=== PATIENT | female | born 1950 | race Caucasian/White ===

== ENCOUNTER → 2018-09-10 | Outpatient (CLI) | payer MEDICARE, BC ==
--- NOTE | 2018-09-10 14:00 | REP ---
Chest two views HISTORY: Cough Comparison: CT 05/10/2011 Linear densities are present in the upper lobes consistent with scarring. Bilateral apical pleural thickening is present. The heart is normal in size. The pulmonary vasculature is normal in appearance. The bony structure is intact. IMPRESSION: Bilateral upper lobe scarring. Electronically Signed by Beau Perrin MD 09/10/2018 01:52 P
== END ==
LOC: M SMT 13:36
PROVIDERS: ATTEND Internal Medicine Pulmonary Disease
DX: R05 Cough (principal)

== ENCOUNTER → 2018-12-06 | Outpatient (REF) | payer MEDICARE, BC ==
[2018-12-06 19:03] LABS: BASO % 0.4 % (0.0-1.0); EOS # 0.1 10^3/uL (0.0-0.50); EOS % 0.7 % (0.0-3.0); HEMATOCRIT 47.3 % (36.0-47.0); HEMOGLOBIN 15.4 g/dl (12.0-15.5); LYMPH # 1.2 10^3/uL (1.5-4.5); LYMPH % 16.8 % (24.0-44.0); MEAN CORPUSCULAR HEMOGLOBIN 31.6 pg (27.0-33.0); MEAN CORPUSCULAR HGB CONC 32.6 g/dl (32.0-36.5); MEAN CORPUSCULAR VOLUME 97.1 fl (80.0-96.0); MONO # 0.7 10^3/uL (0.0-0.8); MONO % 10.4 % (0.0-5.0); NEUTROPHILS % 71.4 % (36.0-66.0); PLATELET COUNT, AUTOMATED 192 10^3/uL (150-450); RED BLOOD COUNT 4.87 10^6/uL (4.00-5.40)
== END ==
LOC: M LAB REF 17:42
PROVIDERS: ATTEND Internal Medicine Pulmonary Disease
DX: R05 Cough (principal); J45.41 Moderate persistent asthma with (acute) exacerbation

== ENCOUNTER → 2019-02-06 | Outpatient (CLI) | payer MEDICARE, BC ==
--- NOTE | 2019-02-06 14:19 | REP ---
Chest two views HISTORY: Cough Comparison: 09/10/2018 Linear densities are present in the upper lobes consistent with scarring. The heart is normal in size. The pulmonary vasculature is normal in appearance. The bony structure is intact. IMPRESSION: No acute disease. Electronically Signed by Beau Perrin MD 02/06/2019 02:11 P
== END ==
LOC: M SMT 13:48
PROVIDERS: ATTEND Internal Medicine Pulmonary Disease
DX: J45.909 Unspecified asthma, uncomplicated (principal)

== ENCOUNTER → 2019-02-20 | Outpatient (CLI) | payer MEDICARE, BC ==
[~2019-02-20] MED LIST: ADVA230A INH; ALL10TAB28 PO; AZEL1SPR3 NARES; CITRTAB18 PO; COQ-100C5 PO; D 101000 PO; FLON1SPR NARES; ISOVUE-370 76% 100ML VIAL (Q9967) As Ordered ONE; MULTCAP PO; RANI1TAB38 PO; REST0.05 OP; ROBA500T PO; SING10TA32 PO; TIOT18INH INH
--- NOTE | 2019-02-20 13:28 | REP ---
CT CHEST WITH IV CONTRAST: HISTORY: Cough. Comparison chest x-rays are from February 06, 2019 and September 10, 2018. There is a comparison chest CT from [facility] dated May 10, 2011. The prior study was interpreted as showing changes of mild cylindrical bronchiectasis in the lower lobes bilaterally. CT CONTRAST DOSE: 75 mL of intravenous Isovue [address] FINDINGS: This is unchanged. There is a 5 mm noncalcified nodule in the left upper lobe on today's study, page 13 of 110 in series 201. This is unchanged from the 2011 prior exam. There is no evidence of pleural or pericardial effusion. No hilar or mediastinal mass or adenopathy is observed. No other pulmonary nodule or mass lesion is seen. The right lower lobe bronchi are somewhat larger than their accompanying pulmonary arteries, and there are several areas of inspissated mucoid material within the right lower lobe bronchi, consistent with diagnosis of bronchiectasis. This is less prominent in the left lower lobe. No infiltrate is seen. There is some right upper lobe cylindrical of bronchiectasis as well. No bony destructive lesion. The exam is otherwise unremarkable. No adrenal abnormality is observed. IMPRESSION: Changes consistent with bronchiectasis in the lower lobes bilaterally, right more so than left as well as in the right upper lobe. Stable biapical pleuroparenchymal fibrosis. Stable 5 mm left apical nodule. Electronically Signed by Sonido Moy MD 02/20/2019 02:21 P
== END ==
LOC: M RAD 10:39
PROVIDERS: ATTEND Internal Medicine Pulmonary Disease
DX: J84.112 Idiopathic pulmonary fibrosis (principal); R91.1 Solitary pulmonary nodule
CPT/HCPCS: 71260; Q9967

== ENCOUNTER 2019-02-21 20:06 | Emergency (ER) | payer MEDICARE, BC ==
[~2019-02-21] VITALS: Ht 162.6 cm; Wt 62.3 kg
[2019-02-21] MEDS ORDERED: SING10TA32 PO (20:27)
[2019-02-21] MEDS ORDERED: RANI1TAB38 PO (20:27)
[2019-02-21] MEDS ORDERED: ALL10TAB28 PO (20:32)
[2019-02-21] MEDS ORDERED: AZEL1SPR3 NARES (20:32)
[2019-02-21] MEDS ORDERED: ADVA230A INH (20:32)
[2019-02-21] MEDS ORDERED: TIOT18INH INH (20:32)
[2019-02-21] MEDS ORDERED: COQ-100C5 PO (20:32)
[2019-02-21] MEDS ORDERED: D 101000 PO (20:32)
[2019-02-21] MEDS ORDERED: FLON1SPR NARES (20:32)
[2019-02-21] MEDS ORDERED: REST0.05 OP (20:32)
[2019-02-21] MEDS ORDERED: MULTCAP PO (20:32)
[2019-02-21] MEDS ORDERED: CITRTAB18 PO (20:32)
[2019-02-21 20:35] LABS: BASO % 0.2 % (0.0-1.0); EOS % 0.1 % (0.0-3.0); HEMATOCRIT 42.1 % (36.0-47.0); HEMOGLOBIN 14.4 g/dl (12.0-15.5); LYMPH # 0.6 10^3/uL (1.5-4.5); LYMPH % 6.9 % (24.0-44.0); MEAN CORPUSCULAR HEMOGLOBIN 33.1 pg (27.0-33.0); MEAN CORPUSCULAR HGB CONC 34.2 g/dl (32.0-36.5); MEAN CORPUSCULAR VOLUME 96.8 fl (80.0-96.0); MONO # 0.2 10^3/uL (0.0-0.8); NEUTROPHILS # 8.1 10^3/uL (1.8-7.7); NEUTROPHILS % 90.4 % (36.0-66.0); PLATELET COUNT, AUTOMATED 149 10^3/uL (150-450); RED BLOOD COUNT 4.35 10^6/uL (4.00-5.40)
[2019-02-21] MEDS ORDERED: NS 1,000 ML IV ONE (20:45)
[2019-02-21] MEDS ORDERED: KETOROLAC 30 MG/ML VIAL (J1885) IV ONE (20:45)
[2019-02-21] MEDS ORDERED: ONDANSETRON 4MG/2ML VIAL (J2405) IV ONE (20:45)
[2019-02-21 21:03] LABS: ALBUMIN 3.6 GM/DL (3.2-5.2); ALT/SGPT 24 U/L (12-78); BILIRUBIN,DIRECT 0.3 MG/DL (0.0-0.2); BILIRUBIN,TOTAL 0.6 MG/DL (0.2-1.0); BLOOD UREA NITROGEN 14 MG/DL (7-18); CALCIUM LEVEL 9.5 MG/DL (8.8-10.2); CARBON DIOXIDE LEVEL 29 MEQ/L (21-32); CHLORIDE LEVEL 104 MEQ/L (98-107); CREATININE FOR GFR 0.93 MG/DL (0.55-1.30); GLOMERULAR FILTRATION RATE > 60.0 (>45); GLUCOSE, FASTING 99 MG/DL (70-100); LIPASE 108 U/L (73-393); POTASSIUM SERUM 3.4 MEQ/L (3.5-5.1); SODIUM LEVEL 140 MEQ/L (136-145); TOTAL PROTEIN 6.7 GM/DL (6.4-8.2)
--- NOTE | 2019-02-21 22:04 | REPVR ---
EXAM: CT Abdomen and Pelvis Without Contrast EXAM DATE/TIME: 02/21/19 (8:53pm) CLINICAL HISTORY: 68 year old female with right flank pain and fever TECHNIQUE: Imaging protocol: Axial computed tomography images of the abdomen and pelvis without contrast. Coronal and sagittal reformatted images were created and reviewed. Radiation optimization: All CT scans at this facility use at least one of these dose optimization techniques: automated exposure control; mA and/or kV adjustment per patient size (includes targeted exams where dose is matched to clinical indication); or iterative reconstruction. COMPARISON: No relevant prior studies available FINDINGS: Lower lung lambert: Patchy RLL airspace disease. Minimal right pleural effusion. The left lung base is essentially clear. Liver: Normal. No solid mass. Gallbladder and bile ducts: Partially contracted gallbladder. No calcified stones. No ductal dilatation. Pancreas: Normal. No ductal dilatation. Spleen: Normal. No splenomegaly. Adrenals: Normal. No mass. Kidneys and ureters: Normal. No hydronephrosis. Stomach and bowel: Normal. No bowel obstruction. No mucosal thickening. Appendix: No evidence of appendicitis. Intraperitoneal space: Normal. No free air. No significant fluid collection. Vasculature: Normal. No abdominal aortic aneurysm. Lymph nodes: Normal. No enlarged lymph nodes. Bladder: Unremarkable as visualized. Reproductive: Unremarkable as visualized. Bones/joints: No acute fracture nor dislocation. Degenerative disc changes at the L2-L3 level. Soft tissues: Unremarkable. IMPRESSION: Patchy RLL airspace disease --- possible infectious pneumonia. Minimal right pleural effusion. Clinical correlation is needed. Follow-up with plain CXR's is recommended. No acute bowel pathology. No hydronephrosis is appreciated. No radiodense urinary tract stones are visualized. Electronically signed by: Emani King On 02/21/2019 22:03:13 PM
[2019-02-21] MEDS ORDERED: LIDOCAINE 5% (LIDODERM) PATCH TD ONE (23:30)
[2019-02-21] MEDS ORDERED: METHOCARBAMOL 1,000 MG/10 ML VIAL (J2800) IV ONE (23:30)
[2019-02-22] MEDS ORDERED: ROBA500T PO (00:20)
[2019-02-22 00:29] VITALS: BP 130/78
[2019-02-22] MEDS ORDERED: **NOTE PATIENT COMMENT** MISC XX SCH (09:00)
--- NOTE | 2019-02-24 13:37 | ED PDOC ---
Post-Departure Follow-Up dr sami lentz faxed formal report of ct abd/p forfu Rod Lopez MD Feb 24, 2019 13:37
== END 2019-02-22 00:30 | disposition home or self-care (01) ==
LOC: M ED 20:06
DX: M54.5 Low back pain (principal); R05 Cough; Z87.891 Personal history of nicotine dependence; Z79.899 Other long term (current) drug therapy; Z79.51 Long term (current) use of inhaled steroids
CPT/HCPCS: 36415; 74176; 80048; 80076; 81001; 83690; 85025; 87086; 96374; 96375; 99284; J1885; J2405; J2800

== ENCOUNTER 2019-08-18 11:37 | Day surgery (SDC) | payer MEDICARE, BC ==
[~2019-08-18] VITALS: Ht 162.6 cm; Wt 59.0 kg
[~2019-08-18 11:37] MED LIST changes: -ALL10TAB28 PO; +ALL10TAB29 PO; -ISOVUE-370 76% 100ML VIAL (Q9967) As Ordered ONE; +LIDOCAINE 2% INJ 100 MG/5 ML SDV (FOR ANES.) As Ordered ONE; +NS 1,000 ML IV ONE; +PROPOFOL 200 MG/20 ML VIAL As Ordered ONE
--- NOTE | 2019-08-18 12:49 | ROOR ---
Patient Name: Ally Lacy Procedure Date: 08/18/2019 12:34 PM Date of : 1950 Age: 69 Room: [facility] Gender: Female Note Status: Finalized Procedure: Upper Endoscopy + Biopsies Indications: Heartburn, Exclusion of Gerard's esophagus Providers: Dann Bangura MD Referring MD: Sushma Hernandez NP Requesting Provider: Medicines: Monitored Anesthesia Care Complications: No immediate complications. Procedure: Pre-Anesthesia Assessment: - The heart rate, respiratory rate, oxygen saturations, blood pressure, adequacy of pulmonary ventilation, and response to care were monitored throughout the procedure. The Endoscope was introduced through the mouth, and advanced to the second part of duodenum. The upper GI endoscopy was accomplished without difficulty. The patient tolerated the procedure well. Findings: The Z-line was irregular and was found 40 cm from the incisors. Multiple biopsies were obtained with cold forceps for evaluation to rule out Gerard's Esophagus randomly at the gastroesophageal junction. A small hiatal hernia was present. No other significant abnormalities were identified in a careful examination of the stomach. The exam of the duodenum was otherwise normal. Impression: - Z-line irregular, 40 cm from the incisors. - Small hiatal hernia. - Multiple biopsies were obtained at the gastroesophageal junction. - The examination was otherwise normal. Recommendation: - Patient has a contact number available for emergencies. The signs and symptoms of potential delayed complications were discussed with the patient. Return to normal activities tomorrow. Written discharge instructions were provided to the patient. - High fiber diet. - Discharge patient to home. - Continue present medications. - Await pathology results. - Telephone GI clinic for pathology results in 1 week. - Return to referring physician. - The findings and recommendations were discussed with the patient's family. Dann Bangura MD Dann Bangura MD 08/18/2019 12:49:17 PM Electronically signed by Dann Bangura MD Number of Addenda: 0 Note Initiated On: 08/18/2019 12:34 PM Estimated Blood Loss: Estimated blood loss: none.
--- NOTE | 2019-08-18 13:17 | ROOR ---
Patient Name: Ally Lacy Procedure Date: 08/18/2019 12:35 PM Date of : 1950 Age: 69 Room: [facility] Gender: Female Note Status: Finalized Procedure: Total Colonoscopy to Cecum + Cold Snare Polypectomy + Biopsy Polypectomy Indications: Screening in patient at increased risk: Family history of 1st-degree relative with colorectal cancer, High risk colon cancer surveillance: Personal history of colonic polyps Providers: Dann Bangura MD Referring MD: Sushma Hernandez NP Requesting Provider: Medicines: Monitored Anesthesia Care Complications: No immediate complications. Procedure: Pre-Anesthesia Assessment: - The heart rate, respiratory rate, oxygen saturations, blood pressure, adequacy of pulmonary ventilation, and response to care were monitored throughout the procedure. The Colonoscope was introduced through the anus and advanced to the cecum, identified by appendiceal orifice and ileocecal valve. The colonoscopy was performed without difficulty. The patient tolerated the procedure well. The quality of the bowel preparation was excellent. Findings: The perianal and digital rectal examinations were normal. Non-bleeding internal hemorrhoids were found during retroflexion. The hemorrhoids were small and Grade I (internal hemorrhoids that do not prolapse). Multiple small and large-mouthed diverticula were found in the recto-sigmoid colon, sigmoid colon and descending colon. A medium polyp was found in the transverse colon. The polyp was sessile. The polyp was removed with a cold snare. Resection and retrieval were complete. A small polyp was found in the hepatic flexure. The polyp was sessile. The polyp was removed with a jumbo cold forceps. Resection and retrieval were complete. A small polyp was found at 40 cm proximal to the anus. The polyp was sessile. The polyp was removed with a jumbo cold forceps. Resection and retrieval were complete. The exam was otherwise without abnormality on direct and retroflexion views. Impression: - Non-bleeding internal hemorrhoids. - Diverticulosis in the recto-sigmoid colon, in the sigmoid colon and in the descending colon. - One medium polyp in the transverse colon, removed with a cold snare. Resected and retrieved. - One small polyp at the hepatic flexure, removed with a jumbo cold forceps. Resected and retrieved. - One small polyp at 40 cm proximal to the anus, removed with a jumbo cold forceps. Resected and retrieved. - The examination was otherwise normal on direct and retroflexion views. - The exam was otherwise normal to the cecum. Recommendation: - Patient has a contact number available for emergencies. The signs and symptoms of potential delayed complications were discussed with the patient. Return to normal activities tomorrow. Written discharge instructions were provided to the patient. - High fiber diet. - Discharge patient to home. - Continue present medications. - Await pathology results. - Repeat colonoscopy in 5 years for surveillance. - Return to referring physician. - The findings and recommendations were discussed with the patient's family. Dann Banguar MD Dann Bangura MD 08/18/2019 1:17:08 PM Electronically signed by Dann Bangura MD Number of Addenda: 0 Note Initiated On: 08/18/2019 12:35 PM Estimated Blood Loss: Estimated blood loss: none.
[2019-08-18 13:40] VITALS: BP 148/67
== END 2019-08-18 14:05 | disposition home or self-care (01) ==
LOC: M OPP 11:37
PROVIDERS: ATTEND Internal Medicine Gastroenterology
DX: Z12.11 Encounter for screening for malignant neoplasm of colon (principal); Z86.010 Personal history of colon polyps; Z80.0 Family history of malignant neoplasm of digestive organs; K64.0 First degree hemorrhoids; K63.5 Polyp of colon; K21.9 Gastro-esophageal reflux disease without esophagitis; K22.8 Other specified diseases of esophagus; K44.9 Diaphragmatic hernia without obstruction or gangrene; R12 Heartburn; Z79.899 Other long term (current) drug therapy; Z87.891 Personal history of nicotine dependence

== ENCOUNTER → 2020-03-16 | Outpatient (CLI) | payer MEDICARE, BC ==
[~2020-03-16] MED LIST changes: -ALL10TAB29 PO; +CETI-24 PO; -LIDOCAINE 2% INJ 100 MG/5 ML SDV (FOR ANES.) As Ordered ONE; -NS 1,000 ML IV ONE; -PROPOFOL 200 MG/20 ML VIAL As Ordered ONE
[2020-03-16 12:54] LABS: IMMUNOGLOBULIN E 31.9 IU/ML (<100); IMMUNOGLOBULIN G 996 MG/DL (681-1648); IMMUNOGLOBULIN M 31.1 MG/DL (40-230); RHEUMATOID FACTOR QUANT < 10.0 IU/ML (<15.0)
[2020-03-20 00:07] LABS: ANCA-ATYPICAL <1:20 titer (Neg:<1:20); ASPERGILLUS FLAVUS ABY Negative (Neg:<1:1); ASPERGILLUS FUMIGATUS ABY Negative (Neg:<1:1); ASPERGILLUS NIGER ABY Negative (Neg:<1:1); CYCLIC CITRULLINATED PEPTIDE < 1 units (0-19); CYTOPLASMIC NEUTROP AB ANCA-C <1:20 titer (Neg:<1:20); D001-IgE D pteronyssinus 0.24 kU/L (Class 0/I); E001-IgE Cat Epith/Dander < 0.10 kU/L (Class 0); E005-IgE Dog Dander < 0.10 kU/L (Class 0); G002-IgE Bermuda Grass < 0.10 kU/L (Class 0); G008-IgE Kentucky Bluegrass < 0.10 kU/L (Class 0); M001-IgE Penicillium chrysogen < 0.10 kU/L (Class 0); M002 IgE Cladosporium herbaru < 0.10 kU/L (Class 0); M003 IgE Aspergillus fumigatu 0.26 kU/L (Class 0/I); M006-IgE Alternaria alternata < 0.10 kU/L (Class 0); PERINUCLEAR AB ANCA-P <1:20 titer (Neg:<1:20); SSA SJOGRENS A <0.2 AI (0.0-0.9); SSB SJOGRENS B <0.2 AI (0.0-0.9); T001-IgE Maple/Box Elder < 0.10 kU/L (Class 0); T003-IgE Common Silver Birch < 0.10 kU/L (Class 0); T006-IgE Cedar, Mountain < 0.10 kU/L (Class 0); T007-IgE Oak, White < 0.10 kU/L (Class 0); T008-IgE Elm, American < 0.10 kU/L (Class 0); T015-IgE Ash, White < 0.10 kU/L (Class 0); T041-IgE Hickory, White < 0.10 kU/L (Class 0); T070-IgE White Mulberry < 0.10 kU/L (Class 0); W001-IgE Ragweed, Short < 0.10 kU/L (Class 0); W009-IgE Plantain, English < 0.10 kU/L (Class 0); W014-IgE Pigweed, Rough < 0.10 kU/L (Class 0); W018-IgE Sheep Sorrel < 0.10 kU/L (Class 0)
== END ==
LOC: M PLALAB 09:54
PROVIDERS: ATTEND Internal Medicine Pulmonary Disease
DX: J45.40 Moderate persistent asthma, uncomplicated (principal)

== ENCOUNTER → 2021-07-04 | Outpatient (CLI) | payer MEDICARE, BC | LOC: M LABSMTC 10:39 | PROVIDERS: ATTEND Pediatrics | DX: Z20.822 Contact with and (suspected) exposure to COVID-19 (principal) | CPT/HCPCS: C9803; U0003 ==

== ENCOUNTER → 2021-07-07 | Outpatient (CLI) | payer MEDICARE, BC ==
--- NOTE | 2021-07-07 15:35 | REP ---
INDICATION: COUGH, DYSPNEA. COMPARISON: 02/06/2019 TECHNIQUE: PA and lateral FINDINGS: The cardiomediastinal silhouette is unchanged. The heart is not enlarged. There is a new patchy opacity in the right lower lobe. A new left lower lobe patchy opacity also appears to be developing. There is slight right CP angle blunting. There is chronic biapical pleuroparenchymal scarring. There is no significant change in appearance of the osseous structures. IMPRESSION: New abnormal lung opacities as described above consistent with pneumonia. Small right pleural effusion is suspected. <Electronically signed by Eleuterio Gonzalez > 07/07/21 [id number]
== END ==
LOC: M WUC 14:49
PROVIDERS: ATTEND Family Medicine
DX: R91.8 Other nonspecific abnormal finding of lung field (principal); R05.1 Acute cough; R06.00 Dyspnea, unspecified

== ENCOUNTER → 2021-08-09 | Outpatient (CLI) | payer MEDICARE, BC ==
[2021-08-09 13:09] LABS: EOS # 0.1 10^3/uL (0.0-0.5)
--- NOTE | 2021-08-09 14:01 | REP ---
INDICATION: MODERATE PERSISTENT ASTHMA, UNCOMPLICATED. COMPARISON: PA and lateral chest images, 07/07/2021. TECHNIQUE: Upright PA and lateral images of the chest were obtained. FINDINGS: There is stable pleural-parenchymal scarring in both lung apices. There has been interval radiographic improvement in the bibasilar airspace consolidation. There may be a minimal right pleural effusion. The heart borders and mediastinum are unremarkable. The upper abdominal bowel gas pattern is normal. There are no significant bony abnormalities of the chest. IMPRESSION: Interval radiographic improvement in bibasilar airspace disease. <Electronically signed by Mason Concepcion > 08/09/21 [id number]
[2021-08-09 14:06] LABS: IMMUNOGLOBULIN M 49.9 MG/DL (40-230)
== END ==
LOC: M PLALAB 11:45
PROVIDERS: ATTEND Internal Medicine Pulmonary Disease
DX: J45.40 Moderate persistent asthma, uncomplicated (principal)

== ENCOUNTER → 2021-11-04 | Outpatient (REF) | payer MEDICARE, BC ==
[2021-11-04 13:57] LABS: BASO % 0.4 % (0.0-1.0); EOS # 0.1 10^3/uL (0.0-0.5); EOS % 1.1 % (0.0-3.0); HEMATOCRIT 47.3 % (36.0-47.0); HEMOGLOBIN 15.1 g/dl (12.0-15.5); LYMPH # 0.7 10^3/uL (1.5-5.0); LYMPH % 6.9 % (24.0-44.0); MEAN CORPUSCULAR HEMOGLOBIN 29.7 pg (27.0-33.0); MEAN CORPUSCULAR HGB CONC 31.9 g/dl (32.0-36.5); MEAN CORPUSCULAR VOLUME 92.9 fl (80.0-96.0); MONO % 9.8 % (2.0-8.0); NEUTROPHILS # 8.2 10^3/uL (1.5-8.5); NEUTROPHILS % 81.5 % (36.0-66.0); PLATELET COUNT, AUTOMATED 231 10^3/uL (150-450); RED BLOOD COUNT 5.09 10^6/uL (4.00-5.40); WHITE BLOOD COUNT 10.1 10^3/uL (4.0-10.0)
[2021-11-08 18:07] LABS: ASPERGILLUS FLAVUS ABY Negative (Neg:<1:1); ASPERGILLUS FUMIGATUS ABY Negative (Neg:<1:1); ASPERGILLUS NIGER ABY Negative (Neg:<1:1)
== END ==
LOC: M LAB REF 13:09
PROVIDERS: ATTEND Internal Medicine Pulmonary Disease
DX: J45.40 Moderate persistent asthma, uncomplicated (principal)

== ENCOUNTER → 2022-04-04 | Outpatient (REF) | payer MEDICARE, BC | LOC: M LAB REF 10:05 | PROVIDERS: ATTEND Internal Medicine Pulmonary Disease | DX: J47.9 Bronchiectasis, uncomplicated (principal) ==

== ENCOUNTER → 2022-04-07 | Outpatient (CLI) | payer MEDICARE, BC | LOC: M PLAIMG 10:57 | PROVIDERS: ATTEND Internal Medicine Pulmonary Disease | DX: J47.9 Bronchiectasis, uncomplicated (principal); R59.0 Localized enlarged lymph nodes; I70.0 Atherosclerosis of aorta; I25.10 Atherosclerotic heart disease of native coronary artery without angina pectoris ==

== ENCOUNTER → 2022-05-12 | Outpatient (REF) | payer MEDICARE, BC | LOC: M LAB REF 13:15 | PROVIDERS: ATTEND Internal Medicine Pulmonary Disease | DX: J45.50 Severe persistent asthma, uncomplicated (principal) ==

== ENCOUNTER → 2022-07-31 | Outpatient (REF) | payer MEDICARE, BC | LOC: M SFHCPLAZ 13:28 | PROVIDERS: ATTEND Internal Medicine Infectious Disease | DX: R05.3 Chronic cough (principal) ==

== ENCOUNTER → 2022-08-01 | Outpatient (CLI) | payer MEDICARE, BC ==
[2022-08-01 15:16] LABS: CARBON DIOXIDE LEVEL 27 MMOL/L (20-31); CHLORIDE LEVEL 102 MMOL/L (98-107); POTASSIUM SERUM 4.1 MMOL/L (3.5-5.1); SODIUM LEVEL 140 MMOL/L (136-145)
[2022-08-01 15:22] LABS: BLOOD UREA NITROGEN 11 MG/DL (9-23); CALCIUM LEVEL 9.6 MG/DL (8.3-10.6); GLUCOSE, FASTING 103 MG/DL (74-106)
[2022-08-01 15:24] LABS: CREATININE FOR GFR 0.69 MG/DL (0.55-1.30); GLOMERULAR FILTRATION RATE > 60.0 (>39)
[2022-08-01 15:29] LABS: TOTAL 25(OH) VITAMIN D 45.8 NG/ML (20.0-100.0)
== END ==
LOC: M PLALAB 09:47
PROVIDERS: ATTEND Internal Medicine Endocrinology, Diabetes & Metabolism
DX: E55.9 Vitamin D deficiency, unspecified (principal)

== ENCOUNTER → 2022-08-15 | Outpatient (REF) | payer MEDICARE, BC | LOC: M SFHCPLAZ 15:14 | PROVIDERS: ATTEND Internal Medicine Infectious Disease | DX: J47.1 Bronchiectasis with (acute) exacerbation (principal) ==

== ENCOUNTER → 2022-08-21 | Outpatient (CLI) | payer MEDICARE, BC | LOC: M PLAIMG 13:08 | PROVIDERS: ATTEND Internal Medicine Pulmonary Disease | DX: J45.50 Severe persistent asthma, uncomplicated (principal); J47.9 Bronchiectasis, uncomplicated ==

== ENCOUNTER → 2022-09-07 | Outpatient (REF) | payer MEDICARE, BC | LOC: M SFHCPLAZ 12:34 | PROVIDERS: ATTEND Internal Medicine Infectious Disease | DX: J47.1 Bronchiectasis with (acute) exacerbation (principal) ==

== ENCOUNTER → 2022-09-11 | Outpatient (REF) | payer MEDICARE, BC | LOC: M SFHCPLAZ 16:54 | PROVIDERS: ATTEND Internal Medicine Infectious Disease | DX: R05.3 Chronic cough (principal); A49.8 Other bacterial infections of unspecified site ==

== ENCOUNTER → 2022-09-14 | Outpatient (REF) | payer MEDICARE, BC | LOC: M SFHCPLAZ 16:53 | PROVIDERS: ATTEND Internal Medicine Infectious Disease | DX: R05.3 Chronic cough (principal); A49.8 Other bacterial infections of unspecified site ==

== ENCOUNTER → 2022-11-06 | Outpatient (REF) | payer MEDICARE, BC ==
[~2022-11-06] MED LIST changes: +MONT-5 PO; -SING10TA32 PO
== END ==
LOC: M SFHCPLAZ 15:24
PROVIDERS: ATTEND Internal Medicine Infectious Disease
DX: A49.8 Other bacterial infections of unspecified site (principal)

== ENCOUNTER 2022-12-27 08:09 | Day surgery (SDC) | payer MEDICARE, BC ==
[~2022-12-27] VITALS: Ht 160 cm; Wt 50.8 kg
[~2022-12-27 08:09] MED LIST changes: +FLUT1BLS8 INH; +LEVOTAB10 PO; +MUCI600T31 PO; +MULT-90 PO; +PRIL20TA2 PO; +RECL5INJ2 IV; +VERA180T42 PO; +VITA100093 PO; +XOLA150I SQ; +[UNRECOGNIZED DRUG - CODE] IH
[2022-12-27] MEDS ORDERED: LR 1,000 ML IV SCH ×2 (08:15→10:30)
[2022-12-27] MEDS ORDERED: ROCURONIUM BROMIDE 50MG/5ML VIAL As Ordered ONE (09:02)
[2022-12-27] MEDS ORDERED: ONDANSETRON 4MG 2ML VIAL As Ordered ONE (09:02)
[2022-12-27] MEDS ORDERED: LIDOCAINE 2% 100MG/5ML SDV (FOR ANES.) As Ordered ONE (09:02)
[2022-12-27] MEDS ORDERED: propofoL 200 MG/20 ML VIAL As Ordered ONE (09:02)
[2022-12-27] MEDS ORDERED: SUGAMMADEX SODIUM 500 MG/5 ML VIAL (BRIDION) As Ordered ONE (09:02)
[2022-12-27] MEDS ORDERED: fentaNYL 100 MCG/2 ML INJECTION As Ordered ONE (09:06)
[2022-12-27] MEDS ORDERED: LABETALOL 100MG/20ML VIAL As Ordered ONE (09:07)
[2022-12-27] MEDS ORDERED: MIDAZOLAM INJ 2MG/2ML VIAL As Ordered ONE (09:10)
[2022-12-27] MEDS ORDERED: ALBUTEROL SULFATE 2.5MG/0.5ML INH NEB SOLN INH ONE (09:30)
[2022-12-27] MEDS ORDERED: LIDOCAINE PRES-FREE 2% 10ML AMP INH ONE (09:30)
[2022-12-27] MEDS ORDERED: ACETAMINOPHEN 1000MG 100ML IV BAG As Ordered ONE (09:59)
[2022-12-27] MEDS ORDERED: CETACAINE SPRAY 5GM As Ordered ONE (10:14)
[2022-12-27] MEDS ORDERED: ONDANSETRON 4MG 2ML VIAL IV PRN (10:30)
[2022-12-27] MEDS ORDERED: oxyCODONE 5MG TAB PO PRN (10:30)
[2022-12-27] MEDS ORDERED: HYDROMORPHONE HCL 0.5 MG/ 0.5 ML SYRINGE IV PRN (10:30)
[2022-12-27] MEDS ORDERED: fentaNYL 100 MCG/2 ML INJECTION IV PRN (10:30)
[2022-12-27 11:20] VITALS: BP 115/56
[2022-12-27 11:55] VITALS: O2SAT 95
[2023-02-26] MEDS ORDERED: LEVA0.636 (10:31)
== END 2022-12-27 12:15 | disposition home or self-care (01) ==
LOC: M SDC 08:09
PROVIDERS: ATTEND Internal Medicine Pulmonary Disease
DX: J98.11 Atelectasis (principal); B96.89 Other specified bacterial agents as the cause of diseases classified elsewhere; R00.0 Tachycardia, unspecified; I49.3 Ventricular premature depolarization; R12 Heartburn; J44.9 Chronic obstructive pulmonary disease, unspecified; J45.909 Unspecified asthma, uncomplicated; Z88.1 Allergy status to other antibiotic agents; Z79.899 Other long term (current) drug therapy; Z79.51 Long term (current) use of inhaled steroids
CPT/HCPCS: 31624; 31628; 31632; 71045; 76000; 87070; 87077; 87102; 87116; 87186; 87205; 87206; J0131; J1100; J2250; J2405; J3010

== ENCOUNTER → 2023-01-26 | Outpatient (REF) | payer MEDICARE, BC | LOC: M SFHCPLAZ 15:27 | PROVIDERS: ATTEND Internal Medicine Infectious Disease | DX: J47.1 Bronchiectasis with (acute) exacerbation (principal) ==

== ENCOUNTER → 2023-02-13 | Outpatient (REF) | payer MEDICARE, BC | LOC: M SFHCDERM 18:06 | PROVIDERS: ATTEND Dermatology | DX: T14.90XD Injury, unspecified, subsequent encounter (principal) ==

== ENCOUNTER 2023-03-14 08:19 | Day surgery (SDC) | payer MEDICARE, BC ==
[~2023-03-14] VITALS: Ht 160 cm; Wt 52.0 kg
[~2023-03-14 08:19] MED LIST changes: +LEVA0.636; +NS 1,000 ML IV ONE
[2023-03-14] MEDS ORDERED: fentaNYL 100 MCG/2 ML INJECTION As Ordered ONE (09:01)
[2023-03-14] MEDS ORDERED: propofoL 200 MG/20 ML VIAL As Ordered ONE ×2 (09:01→09:58)
[2023-03-14] MEDS ORDERED: LIDOCAINE 2% 100MG/5ML SDV (FOR ANES.) As Ordered ONE (09:48)
[2023-03-14 10:20] VITALS: TEMP 98
[2023-03-14 10:41] VITALS: BP 112/57; O2SAT 97
== END 2023-03-14 10:44 | disposition home or self-care (01) ==
LOC: M OPP 08:19
PROVIDERS: ATTEND Internal Medicine Gastroenterology
DX: Z12.11 Encounter for screening for malignant neoplasm of colon (principal); Z86.010 Personal history of colon polyps; Z80.0 Family history of malignant neoplasm of digestive organs; K63.5 Polyp of colon; K64.0 First degree hemorrhoids; K73.0 Chronic persistent hepatitis, not elsewhere classified; K22.89 Other specified disease of esophagus; Z79.52 Long term (current) use of systemic steroids; Z79.83 Long term (current) use of bisphosphonates; Z79.620 Long term (current) use of immunosuppressive biologic; Z88.1 Allergy status to other antibiotic agents
CPT/HCPCS: 43239; 45385; 88305; J3010

== ENCOUNTER → 2023-03-15 | Outpatient (REF) | payer MEDICARE, BC ==
[~2023-03-15] MED LIST changes: -NS 1,000 ML IV ONE
== END ==
LOC: M SFHCDERM 17:38
PROVIDERS: ATTEND Dermatology
DX: Z51.89 Encounter for other specified aftercare (principal)

== ENCOUNTER → 2023-03-27 | Outpatient (REF) | payer MEDICARE, BC | LOC: M SFHCDERM 17:21 | PROVIDERS: ATTEND Dermatology | DX: L82.1 Other seborrheic keratosis (principal) ==

== ENCOUNTER → 2023-04-10 | Outpatient (CLI) | payer MEDICARE, BC ==
[2023-04-10 15:56] LABS: BASO # 0.1 10^3/uL (0.0-0.2); BASO % 0.5 % (0.0-1.0); EOS # 0.2 10^3/uL (0.0-0.5); HEMATOCRIT 41.4 % (36.0-47.0); LYMPH # 1.1 10^3/uL (1.5-5.0); LYMPH % 10.7 % (24.0-44.0); MEAN CORPUSCULAR HEMOGLOBIN 29.1 pg (27.0-33.0); MEAN CORPUSCULAR HGB CONC 31.4 g/dl (32.0-36.5); MEAN CORPUSCULAR VOLUME 92.8 fl (80.0-96.0); MONO % 9.7 % (2.0-8.0); NEUTROPHILS # 8.1 10^3/uL (1.5-8.5); NEUTROPHILS % 76.8 % (36.0-66.0); PLATELET COUNT, AUTOMATED 266 10^3/uL (150-450); RED BLOOD COUNT 4.46 10^6/uL (4.00-5.40); WHITE BLOOD COUNT 10.5 10^3/uL (4.0-10.0)
[2023-04-10 16:19] LABS: ALBUMIN 3.4 G/DL (3.2-5.2); ALKALINE PHOSPHATASE 117 U/L (46-116); ALT/SGPT 20 U/L (7.0-40); AST/SGOT 13 U/L (<34); BILIRUBIN,TOTAL 0.2 MG/DL (0.3-1.2); BLOOD UREA NITROGEN 17 MG/DL (9-23); CALCIUM LEVEL 9.7 MG/DL (8.3-10.6); CARBON DIOXIDE LEVEL 29 MMOL/L (20-31); CHLORIDE LEVEL 102 MMOL/L (98-107); CREATININE FOR GFR 0.65 MG/DL (0.55-1.30); GLOMERULAR FILTRATION RATE > 60.0 (>39); GLUCOSE, FASTING 112 MG/DL (74-106); POTASSIUM SERUM 4.7 MMOL/L (3.5-5.1); SODIUM LEVEL 139 MMOL/L (136-145); TOTAL PROTEIN 7.1 G/DL (5.7-8.2)
[2023-04-10 16:47] LABS: ERYTHROCYTE SEDIMENTATION RATE 77 mm/hr (0-30)
== END ==
LOC: M PLALAB 13:41
PROVIDERS: ATTEND Internal Medicine Infectious Disease
DX: A31.0 Pulmonary mycobacterial infection (principal)

== ENCOUNTER → 2023-04-13 | Outpatient (REF) | payer MEDICARE, BC | LOC: M SFHCDERM 18:15 | PROVIDERS: ATTEND Dermatology | DX: Z51.89 Encounter for other specified aftercare (principal) ==

== ENCOUNTER → 2023-04-23 | Outpatient (CLI) | payer MEDICARE, BC ==
[2023-04-23 14:19] LABS: IMMUNOGLOBULIN A 236.3 MG/DL (40-350); IMMUNOGLOBULIN M 64.6 MG/DL (50-300)
== END ==
LOC: M PLALAB 11:07
PROVIDERS: ATTEND Internal Medicine Infectious Disease
DX: A31.0 Pulmonary mycobacterial infection (principal)

== ENCOUNTER → 2023-04-27 | Outpatient (CLI) | payer MEDICARE, BC | LOC: M RAD 09:37 | PROVIDERS: ATTEND Internal Medicine Infectious Disease | DX: A31.0 Pulmonary mycobacterial infection (principal); J47.9 Bronchiectasis, uncomplicated ==

== ENCOUNTER → 2023-06-05 | Outpatient (CLI) | payer MEDICARE, BC ==
[2023-06-05 15:42] LABS: BASO % 0.5 % (0.0-1.0); EOS # 0.1 10^3/uL (0.0-0.5); EOS % 1.3 % (0.0-3.0); HEMATOCRIT 44.7 % (36.0-47.0); HEMOGLOBIN 14.3 g/dl (12.0-15.5); LYMPH # 1.1 10^3/uL (1.5-5.0); LYMPH % 12.8 % (24.0-44.0); MEAN CORPUSCULAR HEMOGLOBIN 29.7 pg (27.0-33.0); MEAN CORPUSCULAR VOLUME 92.9 fl (80.0-96.0); MONO # 0.9 10^3/uL (0.0-0.8); MONO % 10.3 % (2.0-8.0); NEUTROPHILS # 6.4 10^3/uL (1.5-8.5); NEUTROPHILS % 74.9 % (36.0-66.0); PLATELET COUNT, AUTOMATED 193 10^3/uL (150-450); RED BLOOD COUNT 4.81 10^6/uL (4.00-5.40); WHITE BLOOD COUNT 8.5 10^3/uL (4.0-10.0)
[2023-06-05 15:56] LABS: ERYTHROCYTE SEDIMENTATION RATE 38 mm/hr (0-30)
[2023-06-05 16:12] LABS: C REACTIVE PROTEIN QUANTITATIV < 0.40 MG/DL (<1.0)
[2023-06-05 16:13] LABS: ALBUMIN 3.9 G/DL (3.2-5.2); ALKALINE PHOSPHATASE 93 U/L (46-116); ALT/SGPT 22 U/L (7.0-40); AST/SGOT 19 U/L (<34); BILIRUBIN,TOTAL 0.3 MG/DL (0.3-1.2); BLOOD UREA NITROGEN 18 MG/DL (9-23); CALCIUM LEVEL 9.7 MG/DL (8.3-10.6); CARBON DIOXIDE LEVEL 30 MMOL/L (20-31); CHLORIDE LEVEL 102 MMOL/L (98-107); CREATININE FOR GFR 0.66 MG/DL (0.55-1.30); GLOMERULAR FILTRATION RATE > 60.0 (>39); GLUCOSE, FASTING 87 MG/DL (74-106); POTASSIUM SERUM 4.7 MMOL/L (3.5-5.1); SODIUM LEVEL 138 MMOL/L (136-145); TOTAL PROTEIN 7.4 G/DL (5.7-8.2)
== END ==
LOC: M PLALAB 13:28
PROVIDERS: ATTEND Internal Medicine Infectious Disease
DX: A31.0 Pulmonary mycobacterial infection (principal)

== ENCOUNTER → 2023-06-25 | Outpatient (CLI) | payer MEDICARE, BC | LOC: M PLALAB 14:15 | DX: M85.80 Other specified disorders of bone density and structure, unspecified site (principal) ==

== ENCOUNTER → 2023-06-25 | Outpatient (REF) | payer MEDICARE, BC | LOC: M SFHCPLAZ 15:23 | PROVIDERS: ATTEND Internal Medicine Infectious Disease | DX: A31.0 Pulmonary mycobacterial infection (principal) ==

== ENCOUNTER → 2023-09-06 | Outpatient (REF) | payer MEDICARE, BC | LOC: M SFHCWAGY 15:35 | PROVIDERS: ATTEND Internal Medicine Infectious Disease | DX: A31.0 Pulmonary mycobacterial infection (principal) ==

== ENCOUNTER → 2023-10-08 | Outpatient (CLI) | payer MEDICARE, BC ==
[2023-10-08 15:57] LABS: APPEARANCE, URINE CLEAR (CLEAR); BACTERIA, URINE AUTO NEGATIVE (NEGATIVE); BILIRUBIN, URINE AUTO NEGATIVE (NEGATIVE); BLOOD, URINE BLOOD NEGATIVE (NEGATIVE); COLOR, URINE AMBER (YELLOW); GLUCOSE, URINE (UA) AUTO NEGATIVE (NEGATIVE); KETONE, URINE AUTO NEGATIVE (NEGATIVE); LEUKOCYTE ESTERASE, URINE AUTO NEGATIVE (NEGATIVE); NITRITE, URINE AUTO NEGATIVE (NEGATIVE); PROTEIN, URINE AUTO NEGATIVE (NEGATIVE); RBC, URINE AUTO 0 /HPF (0-3); SPECIFIC GRAVITY URINE AUTO 1.004 (1.002-1.035); SQUAMOUS EPITHELIAL CELL UR AU 0 /HPF (0-6); UROBILINOGEN, URINE AUTO 0.2 mg/dL (0.0-2.0); WBC, URINE AUTO 0 /HPF (0-3)
[2023-10-08 16:02] LABS: HEMATOCRIT 46.3 % (36.0-47.0); HEMOGLOBIN 14.8 g/dl (12.0-15.5); MEAN CORPUSCULAR VOLUME 97.1 fl (80.0-96.0); PLATELET COUNT, AUTOMATED 172 10^3/uL (150-450); RED BLOOD COUNT 4.77 10^6/uL (4.00-5.40); WHITE BLOOD COUNT 9.7 10^3/uL (4.0-10.0)
[2023-10-08 16:08] LABS: ERYTHROCYTE SEDIMENTATION RATE 16 mm/hr (0-30)
[2023-10-08 16:36] LABS: C REACTIVE PROTEIN QUANTITATIV < 0.40 MG/DL (<1.0)
[2023-10-08 16:37] LABS: ALBUMIN 3.7 G/DL (3.2-5.2); ALKALINE PHOSPHATASE 82 U/L (46-116); ALT/SGPT 23 U/L (7.0-40); AST/SGOT 18 U/L (<34); BLOOD UREA NITROGEN 19 MG/DL (9-23); CALCIUM LEVEL 9.6 MG/DL (8.3-10.6); CARBON DIOXIDE LEVEL 31 MMOL/L (20-31); CHLORIDE LEVEL 101 MMOL/L (98-107); CREATININE FOR GFR 0.62 MG/DL (0.55-1.30); GLOMERULAR FILTRATION RATE > 60.0 (>39); GLUCOSE, FASTING 102 MG/DL (74-106); POTASSIUM SERUM 4.5 MMOL/L (3.5-5.1); SODIUM LEVEL 137 MMOL/L (136-145); TOTAL PROTEIN 7.2 G/DL (5.7-8.2)
== END ==
LOC: M PLALAB 13:19
PROVIDERS: ATTEND Internal Medicine Infectious Disease
DX: A31.0 Pulmonary mycobacterial infection (principal); R35.0 Frequency of micturition

== ENCOUNTER → 2023-11-07 | Outpatient (REF) | payer MEDICARE, BC | LOC: M LAB REF 16:55 | PROVIDERS: ATTEND Internal Medicine Infectious Disease | DX: A31.0 Pulmonary mycobacterial infection (principal) ==

== ENCOUNTER → 2023-11-09 | Outpatient (CLI) | payer MEDICARE, BC | LOC: M RAD 10:26 | PROVIDERS: ATTEND Internal Medicine Pulmonary Disease | DX: R91.8 Other nonspecific abnormal finding of lung field (principal) ==

== ENCOUNTER → 2024-01-11 | Outpatient (CLI) | payer MEDICARE, BC ==
[2024-01-11 17:53] LABS: BASO # 0.1 10^3/uL (0.0-0.2); BASO % 0.8 % (0.0-1.0); EOS # 0.2 10^3/uL (0.0-0.5); EOS % 1.7 % (0.0-3.0); HEMATOCRIT 43.8 % (36.0-47.0); HEMOGLOBIN 14.5 g/dl (12.0-15.5); LYMPH # 1.3 10^3/uL (1.5-5.0); LYMPH % 14.8 % (24.0-44.0); MEAN CORPUSCULAR HEMOGLOBIN 31.5 pg (27.0-33.0); MEAN CORPUSCULAR HGB CONC 33.1 g/dl (32.0-36.5); MONO # 0.9 10^3/uL (0.0-0.8); MONO % 9.9 % (2.0-8.0); NEUTROPHILS # 6.2 10^3/uL (1.5-8.5); NEUTROPHILS % 72.6 % (36.0-66.0); PLATELET COUNT, AUTOMATED 186 10^3/uL (150-450); RED BLOOD COUNT 4.61 10^6/uL (4.00-5.40); WHITE BLOOD COUNT 8.6 10^3/uL (4.0-10.0)
[2024-01-11 18:05] LABS: ERYTHROCYTE SEDIMENTATION RATE 16 mm/hr (0-30)
[2024-01-11 18:16] LABS: C REACTIVE PROTEIN QUANTITATIV < 0.40 MG/DL (<1.0)
[2024-01-11 18:17] LABS: ALBUMIN 3.5 G/DL (3.2-5.2); ALKALINE PHOSPHATASE 79 U/L (46-116); ALT/SGPT 21 U/L (7.0-40); AST/SGOT 16 U/L (<34); BILIRUBIN,TOTAL 0.9 MG/DL (0.3-1.2); BLOOD UREA NITROGEN 20 MG/DL (9-23); CALCIUM LEVEL 9.5 MG/DL (8.3-10.6); CARBON DIOXIDE LEVEL 29 MMOL/L (20-31); CHLORIDE LEVEL 100 MMOL/L (98-107); CREATININE FOR GFR 0.64 MG/DL (0.55-1.30); GLOMERULAR FILTRATION RATE > 60.0 (>39); GLUCOSE, FASTING 81 MG/DL (74-106); POTASSIUM SERUM 4.3 MMOL/L (3.5-5.1); SODIUM LEVEL 137 MMOL/L (136-145); TOTAL PROTEIN 6.7 G/DL (5.7-8.2)
== END ==
LOC: M PLALAB 15:07
PROVIDERS: ATTEND Internal Medicine Infectious Disease
DX: A31.0 Pulmonary mycobacterial infection (principal)

== ENCOUNTER → 2024-02-20 | Outpatient (CLI) | payer MEDICARE, BC | LOC: M PLALAB 09:19 | PROVIDERS: ATTEND Internal Medicine Endocrinology, Diabetes & Metabolism | DX: M85.89 Other specified disorders of bone density and structure, multiple sites (principal) ==

== ENCOUNTER → 2024-02-20 | Outpatient (CLI) | payer MEDICARE, BC | LOC: M WHC 09:15 | PROVIDERS: ATTEND Internal Medicine | DX: M85.89 Other specified disorders of bone density and structure, multiple sites (principal); M85.851 Other specified disorders of bone density and structure, right thigh; M85.852 Other specified disorders of bone density and structure, left thigh ==

== ENCOUNTER → 2024-03-05 | Outpatient (REF) | payer MEDICARE, BC | LOC: M SFHCPLAZ 14:47 | PROVIDERS: ATTEND Internal Medicine Infectious Disease | DX: A31.0 Pulmonary mycobacterial infection (principal) ==

== ENCOUNTER → 2024-04-17 | Outpatient (CLI) | payer MEDICARE, BC ==
[2024-04-17 10:53] LABS: BASO % 0.6 % (0.0-1.0); EOS # 0.2 10^3/uL (0.0-0.5); EOS % 2.6 % (0.0-3.0); HEMATOCRIT 42.5 % (36.0-47.0); HEMOGLOBIN 14.2 g/dl (12.0-15.5); LYMPH % 14.1 % (24.0-44.0); MEAN CORPUSCULAR HEMOGLOBIN 32.1 pg (27.0-33.0); MEAN CORPUSCULAR HGB CONC 33.4 g/dl (32.0-36.5); MEAN CORPUSCULAR VOLUME 95.9 fl (80.0-96.0); MONO # 0.6 10^3/uL (0.0-0.8); MONO % 9.4 % (2.0-8.0); NEUTROPHILS % 72.9 % (36.0-66.0); PLATELET COUNT, AUTOMATED 173 10^3/uL (150-450); RED BLOOD COUNT 4.43 10^6/uL (4.00-5.40); WHITE BLOOD COUNT 6.8 10^3/uL (4.0-10.0)
[2024-04-17 10:58] LABS: ERYTHROCYTE SEDIMENTATION RATE 15 mm/hr (0-30)
[2024-04-17 11:18] LABS: C REACTIVE PROTEIN QUANTITATIV < 0.40 MG/DL (<1.0)
[2024-04-17 11:19] LABS: ALBUMIN 3.8 G/DL (3.2-5.2); ALKALINE PHOSPHATASE 77 U/L (46-116); ALT/SGPT 20 U/L (7.0-40); AST/SGOT 14 U/L (<34); BILIRUBIN,TOTAL 0.4 MG/DL (0.3-1.2); BLOOD UREA NITROGEN 20 MG/DL (9-23); CALCIUM LEVEL 9.9 MG/DL (8.3-10.6); CARBON DIOXIDE LEVEL 31 MMOL/L (20-31); CHLORIDE LEVEL 106 MMOL/L (98-107); CREATININE FOR GFR 0.75 MG/DL (0.55-1.30); GLOMERULAR FILTRATION RATE > 60.0 (>39); GLUCOSE, FASTING 93 MG/DL (74-106); POTASSIUM SERUM 4.5 MMOL/L (3.5-5.1); SODIUM LEVEL 141 MMOL/L (136-145); TOTAL PROTEIN 6.8 G/DL (5.7-8.2)
== END ==
LOC: M PLALAB 08:56
PROVIDERS: ATTEND Internal Medicine Infectious Disease
DX: J47.1 Bronchiectasis with (acute) exacerbation (principal); R05.3 Chronic cough

== ENCOUNTER → 2024-05-06 | Outpatient (REF) | payer MEDICARE, BC | LOC: M SFHCPLAZ 15:08 | PROVIDERS: ATTEND Internal Medicine Infectious Disease | DX: Z31.0 Encounter for reversal of previous sterilization (principal) ==

== ENCOUNTER → 2024-05-12 | Outpatient (CLI) | payer MEDICARE, BC | LOC: M PLAIMG 10:44 | PROVIDERS: ATTEND Internal Medicine Infectious Disease | DX: A31.0 Pulmonary mycobacterial infection (principal); J47.9 Bronchiectasis, uncomplicated; R91.8 Other nonspecific abnormal finding of lung field ==

== ENCOUNTER → 2024-07-25 | Outpatient (CLI) | payer MEDICARE, BC ==
[2024-07-25 15:02] LABS: BASO % 0.5 % (0.0-1.0); EOS # 0.1 10^3/uL (0.0-0.5); EOS % 1.1 % (0.0-3.0); HEMATOCRIT 40.1 % (36.0-47.0); HEMOGLOBIN 13.2 g/dl (12.0-15.5); LYMPH # 1.1 10^3/uL (1.5-5.0); LYMPH % 14.4 % (24.0-44.0); MEAN CORPUSCULAR HGB CONC 32.9 g/dl (32.0-36.5); MEAN CORPUSCULAR VOLUME 97.3 fl (80.0-96.0); MONO # 0.7 10^3/uL (0.0-0.8); MONO % 9.5 % (2.0-8.0); NEUTROPHILS # 5.6 10^3/uL (1.5-8.5); PLATELET COUNT, AUTOMATED 183 10^3/uL (150-450); RED BLOOD COUNT 4.12 10^6/uL (4.00-5.40); WHITE BLOOD COUNT 7.6 10^3/uL (4.0-10.0)
[2024-07-25 15:06] LABS: C REACTIVE PROTEIN QUANTITATIV < 0.40 MG/DL (<1.0)
[2024-07-25 15:08] LABS: ALBUMIN 3.5 G/DL (3.2-5.2); ALKALINE PHOSPHATASE 70 U/L (35-104); ALT/SGPT 18 U/L (7.0-40); AST/SGOT 11 U/L (<34); BILIRUBIN,TOTAL 0.9 MG/DL (0.3-1.2); BLOOD UREA NITROGEN 18 MG/DL (9-23); CALCIUM LEVEL 9.8 MG/DL (8.3-10.6); CARBON DIOXIDE LEVEL 28 MMOL/L (20-31); CHLORIDE LEVEL 103 MMOL/L (98-107); CREATININE FOR GFR 0.71 MG/DL (0.55-1.30); GLOMERULAR FILTRATION RATE > 60.0 (>39); GLUCOSE, FASTING 96 MG/DL (74-106); POTASSIUM SERUM 4.1 MMOL/L (3.5-5.1); SODIUM LEVEL 138 MMOL/L (136-145); TOTAL PROTEIN 6.5 G/DL (5.7-8.2)
[2024-07-25 15:10] LABS: ERYTHROCYTE SEDIMENTATION RATE 16 mm/hr (0-30)
== END ==
LOC: M PLALAB 12:17
PROVIDERS: ATTEND Internal Medicine Infectious Disease
DX: A31.0 Pulmonary mycobacterial infection (principal)

== ENCOUNTER → 2024-10-17 | Outpatient (CLI) | payer MEDICARE, BC ==
[2024-10-17 13:29] LABS: HEMATOCRIT 40.6 % (36.0-47.0); HEMOGLOBIN 13.6 g/dl (12.0-15.5); MEAN CORPUSCULAR HEMOGLOBIN 32.7 pg (27.0-33.0); MEAN CORPUSCULAR HGB CONC 33.5 g/dl (32.0-36.5); MEAN CORPUSCULAR VOLUME 97.6 fl (80.0-96.0); PLATELET COUNT, AUTOMATED 183 10^3/uL (150-450); RED BLOOD COUNT 4.16 10^6/uL (4.00-5.40); WHITE BLOOD COUNT 7.5 10^3/uL (4.0-10.0)
[2024-10-17 13:56] LABS: ALBUMIN 3.5 G/DL (3.2-5.2); ALKALINE PHOSPHATASE 77 U/L (35-104); ALT/SGPT 17 U/L (7.0-40); AST/SGOT 13 U/L (<34); BILIRUBIN,TOTAL 0.8 MG/DL (0.3-1.2); BLOOD UREA NITROGEN 16 MG/DL (9-23); C REACTIVE PROTEIN QUANTITATIV 1.13 MG/DL (<1.0); CALCIUM LEVEL 9.5 MG/DL (8.3-10.6); CARBON DIOXIDE LEVEL 31 MMOL/L (20-31); CHLORIDE LEVEL 103 MMOL/L (98-107); CREATININE FOR GFR 0.66 MG/DL (0.55-1.30); GLOMERULAR FILTRATION RATE > 60.0 (>39); GLUCOSE, FASTING 100 MG/DL (74-106); SODIUM LEVEL 139 MMOL/L (136-145); TOTAL PROTEIN 6.8 G/DL (5.7-8.2)
== END ==
LOC: M PLALAB 11:47
PROVIDERS: ATTEND Internal Medicine Infectious Disease
DX: A31.0 Pulmonary mycobacterial infection (principal)

== ENCOUNTER → 2024-11-06 | Outpatient (CLI) | payer MEDICARE, BC | LOC: M RAD 11:21 | PROVIDERS: ATTEND Internal Medicine Infectious Disease | DX: A31.0 Pulmonary mycobacterial infection (principal); J47.9 Bronchiectasis, uncomplicated; R91.8 Other nonspecific abnormal finding of lung field ==

== ENCOUNTER → 2024-11-19 | Outpatient (CLI) | payer MEDICARE, BC ==
[2024-11-19 13:13] LABS: BASO % 0.5 % (0.0-1.0); EOS # 0.1 10^3/uL (0.0-0.5); EOS % 1.7 % (0.0-3.0); HEMATOCRIT 43.2 % (36.0-47.0); HEMOGLOBIN 14.2 g/dl (12.0-15.5); LYMPH % 12.9 % (24.0-44.0); MEAN CORPUSCULAR HEMOGLOBIN 32.1 pg (27.0-33.0); MEAN CORPUSCULAR HGB CONC 32.9 g/dl (32.0-36.5); MEAN CORPUSCULAR VOLUME 97.5 fl (80.0-96.0); MONO # 0.8 10^3/uL (0.0-0.8); NEUTROPHILS # 5.8 10^3/uL (1.5-8.5); NEUTROPHILS % 74.4 % (36.0-66.0); PLATELET COUNT, AUTOMATED 174 10^3/uL (150-450); RED BLOOD COUNT 4.43 10^6/uL (4.00-5.40); WHITE BLOOD COUNT 7.8 10^3/uL (4.0-10.0)
[2024-11-19 13:19] LABS: ERYTHROCYTE SEDIMENTATION RATE 14 mm/hr (0-30)
== END ==
LOC: M PLALAB 11:23
PROVIDERS: ATTEND Internal Medicine Infectious Disease
DX: J47.1 Bronchiectasis with (acute) exacerbation (principal); A31.0 Pulmonary mycobacterial infection

== ENCOUNTER → 2025-04-16 | Outpatient (REF) | payer MEDICARE, BC | LOC: M SFHCWAGY 12:58 | PROVIDERS: ATTEND Nurse Practitioner Family | DX: R10.2 Pelvic and perineal pain (principal) ==

== ENCOUNTER → 2025-04-29 | Outpatient (CLI) | payer MEDICARE, BC ==
[2025-04-29 13:52] LABS: CALCIUM LEVEL 9.8 MG/DL (8.3-10.6); CARBON DIOXIDE LEVEL 30.0 MMOL/L (20-31); CHLORIDE LEVEL 100.0 MMOL/L (98-107); CREATININE FOR GFR 0.82 MG/DL (0.55-1.30); GLOMERULAR FILTRATION RATE 75.0 (>39); POTASSIUM SERUM 4.5 MMOL/L (3.5-5.1); SODIUM LEVEL 139.0 MMOL/L (136-145)
[2025-04-29 13:53] LABS: TOTAL 25(OH) VITAMIN D 55.8 NG/ML (20.0-100.0)
== END ==
LOC: M PLALAB 10:24
PROVIDERS: ATTEND Nurse Practitioner Family
DX: M85.89 Other specified disorders of bone density and structure, multiple sites (principal); E55.9 Vitamin D deficiency, unspecified

== ENCOUNTER → 2025-04-29 | Outpatient (CLI) | payer MEDICARE, BC ==
[2025-04-29 13:52] LABS: FREE T4 1.59 NG/DL (0.89-1.76)
== END ==
LOC: M PLALAB 10:26
PROVIDERS: ATTEND Nurse Practitioner Family
DX: E04.9 Nontoxic goiter, unspecified (principal)

== ENCOUNTER → 2025-05-05 | Outpatient (REF) | payer MEDICARE, BC | LOC: M LAB REF 14:53 | PROVIDERS: ATTEND Internal Medicine Infectious Disease | DX: A31.0 Pulmonary mycobacterial infection (principal) ==

== ENCOUNTER → 2025-05-15 | Outpatient (CLI) | payer MEDICARE, BC | LOC: M WHC 12:21 | PROVIDERS: ATTEND Nurse Practitioner Family | DX: E04.2 Nontoxic multinodular goiter (principal) ==

== ENCOUNTER → 2025-07-07 | Outpatient (REF) | payer MEDICARE, BC | LOC: M SFHCPLAZ 12:53 | PROVIDERS: ATTEND Internal Medicine Infectious Disease | DX: Z31.0 Encounter for reversal of previous sterilization (principal) ==

== ENCOUNTER → 2025-08-11 | Outpatient (CLI) | payer MEDICARE, BC ==
[2025-08-11 15:52] LABS: CALCIUM LEVEL 9.0 MG/DL (8.3-10.6); CARBON DIOXIDE LEVEL 30.0 MMOL/L (20-31); CHLORIDE LEVEL 106.0 MMOL/L (98-107); CREATININE FOR GFR 0.78 MG/DL (0.55-1.30); GLOMERULAR FILTRATION RATE 79.7 (>39); POTASSIUM SERUM 4.5 MMOL/L (3.5-5.1); SODIUM LEVEL 143.0 MMOL/L (136-145)
== END ==
LOC: M PLALAB 10:41
PROVIDERS: ATTEND Nurse Practitioner Family
DX: M85.89 Other specified disorders of bone density and structure, multiple sites (principal); E78.5 Hyperlipidemia, unspecified

== ENCOUNTER → 2025-08-11 | Outpatient (CLI) | payer MEDICARE, BC ==
[2025-08-11 15:53] LABS: ALT/SGPT 23.0 U/L (7.0-40); AST/SGOT 22.0 U/L (<34); CALCIUM LEVEL 9.1 MG/DL (8.3-10.6); CARBON DIOXIDE LEVEL 30.0 MMOL/L (20-31); CHLORIDE LEVEL 104.0 MMOL/L (98-107); CHOLESTEROL LEVEL 201.0 MG/DL (<200); CHOLESTEROL RISK RATIO 2.1 (<5); CREATININE FOR GFR 0.76 MG/DL (0.55-1.30); GLOMERULAR FILTRATION RATE 82.2 (>39); LDL CHOLESTEROL 99.3 MG/DL (<100); NON-HDL-C 105.5 MG/DL; POTASSIUM SERUM 4.4 MMOL/L (3.5-5.1); SODIUM LEVEL 142.0 MMOL/L (136-145); TRIGLYCERIDES LEVEL 31.0 MG/DL (<150)
== END ==
LOC: M PLALAB 10:44
PROVIDERS: ATTEND Internal Medicine
DX: E78.5 Hyperlipidemia, unspecified (principal)

== ENCOUNTER → 2025-08-20 | Outpatient (CLI) | payer MEDICARE, BC | LOC: M PLAIMG 10:33 | PROVIDERS: ATTEND Internal Medicine Pulmonary Disease | DX: R91.8 Other nonspecific abnormal finding of lung field (principal); J47.9 Bronchiectasis, uncomplicated ==